=== PATIENT | female | born 1950 | race Caucasian/White ===

== ENCOUNTER 2023-07-17 21:06 | Inpatient (IN) | payer OTHER ==
[2023-07-17 21:36] LABS: Absolute Lymphocytes (CBC) 1.5 K/uL (0.7-4.9); Hematocrit 42.6 % (36.0-45.0); Lymphocytes % 16.9 % (15.3-44.8); MCV 91.8 fL (80-100); MPV 7.7 fL (7.6-11.3); Platelets 269 thou/uL (152-406); RBC Red Blood Cell Count 4.64 M/uL (3.86-4.86)
[2023-07-17] MEDS ORDERED: NA CHLORIDE 0.9% 250 ML ONE (21:39)
[2023-07-17] MEDS ORDERED: NA CHLORIDE 0.9% 100 ML ONE (21:39)
[2023-07-17] MEDS ORDERED: CEFEPIME 1 GM/VIAL ONE (21:39)
[2023-07-17] MEDS ORDERED: VANCOMYCIN 1 GM/VIAL ONE (21:39)
[2023-07-17] MEDS ORDERED: ACETAMINOPHEN 650MG/RECT SUPP PR ONE (21:39)
[2023-07-17] MEDS ORDERED: NA CHLORIDE 0.9% 2,000 ML ONE (21:40)
[2023-07-17 21:44] LABS: Urine Bacteria <20 /HPF (<20); Urine Bilirubin NEGATIVE (Negative); Urine Blood Trace (Negative); Urine Clarity Extremely Turbid (Clear); Urine Color Yellow (Yellow); Urine Crystals Unidentified Few /HPF (None Seen); Urine Glucose 2+ (Negative); Urine Mucus Slight /HPF (None Seen); Urine Protein 2+ (Negative); Urine RBC <5 /HPF (None Seen); Urine Urobilinogen Normal (Normal); Urine pH 5.5 (5.0-7.0)
[2023-07-17 21:54] LABS: Albumin 3.7 g/dL (3.4-5.0); Bilirubin Total 0.5 mg/dL (0.2-1.0); Potassium 3.3 mEq/L (3.5-5.1); Protein, Total 7.1 g/dL (6.4-8.2)
[2023-07-17] MEDS ORDERED: propofoL 1,000 MG/100 ML VIAL IV ONE (22:00)
[2023-07-17 22:01] LABS: Blood Gas Oxyhemoglobin 95.2 % (94-97); Blood O2 Saturation 97.2 % (92-98.5)
[2023-07-17 22:02] LABS: Arterial Blood Carboxyhemoglob 0.5 % (0-1.5)
[2023-07-17 22:07] LABS: Protime INR 1.08
--- NOTE | 2023-07-17 22:19 | RAD REPORT ---
EXAM DESCRIPTION: RAD - Chest Single View - 07/17/2023 10:08 pm CLINICAL HISTORY: AMS COMPARISON: CHEST PA AND LAT 2 VIEW dated 11/18/2013 FINDINGS: Lines: Endotracheal tube with tip at the top of the aortic arch. NG tube below the diaphra gm. Lungs: Low lung volumes with ill-defined bilateral interstitial and airspace disease . Pleural: No significant pleural effusions or pneumothorax. Cardiac: The heart size is within normal limits. Mediastinum: Within normal limits. Bones: No acute fractures. Other: None IMPRESSION: Bilateral airspace opacities could reflect aspiration and/or edema. Endotracheal tube an d NG tube in satisfactory position.
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
[2023-07-17 23:12] LABS: Barbiturates NEGATIVE (NEGATIVE); Benzodiazepines POSITIVE (NEGATIVE); Cocaine NEGATIVE (NEGATIVE); METHAMPHETAM NEGATIVE (NEGATIVE); Methadone NEGATIVE (NEGATIVE); Opiates NEGATIVE (NEGATIVE); Phencyclidine NEGATIVE (NEGATIVE); THC Cannibis NEGATIVE (NEGATIVE)
[2023-07-17 23:45] LABS: Blood Gas Oxyhemoglobin 96.9 % (94-97)
[2023-07-17 23:46] LABS: Arterial Blood Carboxyhemoglob 0.5 % (0-1.5)
[2023-07-18 00:50] LABS: Troponin High Sensitivity 1939.5 pg/mL (<58.9)
[2023-07-18] MEDS ORDERED: FENTANYL CITR 100 MCG/2 ML ONE (01:19)
[2023-07-18] MEDS ORDERED: RSI MEDICATION KIT IV ONE (01:45)
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
[2023-07-18] MEDS ORDERED: HEPARIN/D5W 25,000 UNIT/500 ML BAG IV ONE (02:43)
[2023-07-18] MEDS ORDERED: HEPARIN 5000 UNIT/ML 1 ML VIAL ONE (02:43)
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
[2023-07-18] MEDS ORDERED: ASPIRIN 300 MG/SUPP ONE (02:59)
[2023-07-18] MEDS: D5 0.45 NS 1,000 ML IV SCH ×2 (03:48→17:39)
[2023-07-18] MEDS ORDERED: VANCOMYCIN 1 GM in NA CHLORIDE 0.9% 250 ML IVPB SCH (03:48)
[2023-07-18] MEDS ORDERED: NA CHLORIDE 0.9% 500 ML ONE (03:51)
[2023-07-18] MEDS ORDERED: D5 0.45 NS 1,000 ML IV ONE (04:28)
[2023-07-18] MEDS ORDERED: VANCOMYCIN 1 GM in NA CHLORIDE 0.9% 250 ML IVPB ONE (05:00)
[2023-07-18] MEDS ORDERED: NA CHLORIDE 0.9% 250 ML ONE (06:07)
[2023-07-18] MEDS ORDERED: VANCOMYCIN 1 GM/VIAL ONE (06:07)
[2023-07-18 06:20] LABS: Arterial Blood Carboxyhemoglob 0.8 % (0-1.5); Blood Gas Oxyhemoglobin 95.6 % (94-97); Blood O2 Saturation 97.8 % (92-98.5)
--- NOTE | 2023-07-18 07:38 | RAD REPORT ---
EXAM DESCRIPTION: - CP - 07/18/2023 5:48 am CLINICAL HISTORY: abnormal gait, poss cva, syncope COMPARISON: No comparisons TECHNIQUE: Real-time sonographic evaluation of both carotid systems was performed. Doppler interroga tion was performed with waveform tracing bilaterally. FINDINGS: Normal high resistance waveforms are noted in both external carotid arteries. The common c arotid arteries and internal carotid arteries show normal low resistance waveforms. Hard and soft plaque present at the the carotid bifurcations. Peak systolic and end diastolic velocit y values and the ICA/CCA ratios are in the non-hemodynamically significant range. Antegrade flow seen in both vertebral arteries. Elevated peak systolic velocity present in the left v ertebral artery. The peak systolic velocity is 229 cm/sec. IMPRESSION: Mixed hard and soft plaque at the carotid bifurcations but no hemodynamically significan t stenosis involving either carotid system. Elevated PSV in the left vertebral artery likely reflecting a moderate to severe proximal stenosis.
[2023-07-18] MEDS ORDERED: PNEUMOCOCCAL VACCINE 0.5 ML IMVAC ONE (08:00)
--- NOTE | 2023-07-18 08:06 | RAD REPORT ---
EXAM DESCRIPTION: MRI - Brain Wo Cont - 07/18/2023 7:55 am CLINICAL HISTORY: abnormal gait, syncope COMPARISON: Head C Spine Cap Wo Con dated 07/17/2023 TECHNIQUE: Sagittal T1-weighted images were obtained along with PD/heavily T2-weighted and T2-FLAIR images. Axial DWI and ADC mapping sequences were also obtained along with coronal heavily T2-weighted images were obtained. FINDINGS: Small focus of diffusion restriction in the lateral right occipital lobe that may be corti [place] versus subcortical. Background of moderate to advanced chronic small vessel ischemic changes. No other infarct identified. No mass effect or midline shift. No hydrocephalus. Ethmoid air cell and mild maxillary sinus thickening. IMPRESSION: 1. Small acute right occipital lobe infarct. It is difficult to discern if this is corti [place] or subcortical. 2. Moderate chronic small vessel ischemic changes.
[2023-07-18 08:12] LABS: Absolute Lymphocytes (CBC) 1.2 K/uL (0.7-4.9); Hematocrit 37.1 % (36.0-45.0); Lymphocytes % 11.2 % (15.3-44.8); MPV 7.6 fL (7.6-11.3); Platelets 214 thou/uL (152-406); RBC Red Blood Cell Count 4.12 M/uL (3.86-4.86)
[2023-07-18 08:30] LABS: Albumin 3.2 g/dL (3.4-5.0); Bilirubin Total 0.6 mg/dL (0.2-1.0); Potassium 3.3 mEq/L (3.5-5.1); Protein, Total 6.1 g/dL (6.4-8.2); Thyroid Stimulating Hormone 0.231 uIU/mL (0.358-3.740)
[2023-07-18] MEDS: ASPIRIN EC 81 MG TAB PO SCH (09:00)
[2023-07-18] MEDS ORDERED: CEFEPIME 1 GM in NA CHLORIDE 0.9% 100 ML IV SCH ×5 (09:00→21:00)
--- NOTE | 2023-07-18 09:16 | P.HP ---
Patient History Date of Service: 07/18/23 Reason for admission: Severe sepsis, pneumonia, NSTEMI Allergies No Known Allergies Allergy (Verified 07/18/23 08:38) Home Medications: NK [No Home Meds] 07/18/23 - Past Medical/Surgical History Has patient received pneumonia vaccine in the past: No -: none -: C-sections Psychosocial/ Personal History: Patient lives at home with family - Family History Family History: Reviewed- Non-Contributory - Social History Smoking Status: Never smoker Alcohol use: No CD- Drugs: No Caffeine use: Yes Place of Residence: Home Physical Examination - Vital Signs Temperature: 100.4 F Blood Pressure: 128/63 Pulse: 91 Respirations: 22 Pulse Ox (%): 97 - Studies Laboratory Data (last 24 hrs) 07/17/23 07/17/23 07/17/23 21:25 21:25 21:25 WBC 9.10 Hgb 13.8 Hct 42.6 Plt Count 269 PT 11.9 INR 1.08 APTT 29.1 Sodium 142 Potassium 3.3 L BUN 24 H Creatinine 1.37 H Glucose 288 H Total Bilirubin 0.5 AST 45 H ALT 39 Alkaline Phosphatase 89 Microbiology Data (last 24 hrs): 07/17/23 21:20 Nasopharnyx Influenza Type A Antigen Screen - Final 07/17/23 21:20 Nasopharnyx Influenza Type B Antigen Screen - Final Assessment and Plan - Advance Directives Does patient have a Living Will: No Does patient have a Durable POA for Healthcare: No
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
[2023-07-18] MEDS: METOPROLOL TAR 25 MG TAB PO SCH ×2 (13:00→17:39)
[2023-07-18] MEDS: ACETAMINOPHEN 500 MG TAB PO PRN (13:04)
--- NOTE | 2023-07-18 13:56 | EKG ---
Test Date: 2023-07-17 Test Time: 21:09:47 Surgical Oncologist: ISIAH MEASUREMENT RESULTS: Intervals: Rate: 126 AL: 176 QRSD: 106 QT: 332 QTc: 480 [place]: P: 60 AL: 176 QRS: -34 T: 57 INTERPRETIVE STATEMENTS: Sinus tachycardia Left axis deviation Abnormal ECG No previous ECG available for comparison Electronically Signed On 07-18-23 13:55:05 CDT by Toen Watkins
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
[2023-07-18] MEDS: ATORVASTATIN 40 MG TAB PO SCH (20:50)
[2023-07-18] MEDS: AMOX/K CLAV 875 MG TAB PO SCH (20:50)
[2023-07-18] MEDS: HYDRALAZINE HCL 20 MG/ML VIAL IV PRN (21:11)
[2023-07-18] MEDS ORDERED: HYDRALAZINE HCL 20 MG/ML VIAL ONE (21:18)
[2023-07-18] MEDS ORDERED: POTASSIUM CL SA 10 MEQ TAB PO ONE (22:00)
[2023-07-19] MEDS: HEPARIN/D5W 25,000 UNIT/500 ML BAG IV SCH (03:53)
[2023-07-19] MEDS: D5 0.45 NS 1,000 ML IV SCH ×2 (03:53→19:29)
[2023-07-19 04:58] LABS: Absolute Lymphocytes (CBC) 2.2 K/uL (0.7-4.9); Hematocrit 38.9 % (36.0-45.0); MCV 89.7 fL (80-100); MPV 7.9 fL (7.6-11.3); Platelets 200 thou/uL (152-406); RBC Red Blood Cell Count 4.33 M/uL (3.86-4.86)
[2023-07-19] MEDS: METOPROLOL TAR 25 MG TAB PO SCH ×2 (05:09→18:01)
[2023-07-19 05:17] LABS: Albumin 3.2 g/dL (3.4-5.0); Bilirubin Total 0.6 mg/dL (0.2-1.0); Potassium 3.3 mEq/L (3.5-5.1); Protein, Total 6.3 g/dL (6.4-8.2)
[2023-07-19] MEDS: HYDRALAZINE HCL 20 MG/ML VIAL IV PRN ×2 (06:37→12:16)
--- NOTE | 2023-07-19 08:00 | P.PN ---
Subjective Date of Service: 07/19/23 Chief Complaint: Severe sepsis, pneumonia, NSTEMI Subjective: No new changes, Improving Physical Examination - Vital Signs Temperature: 98.1 F Blood Pressure: 206/76 Pulse: 71 Respirations: 19 Pulse Ox (%): 96 - Physical Exam General: Alert, Oriented x3 HEENT: Atraumatic, Normocephalic Neck: Supple Respiratory: Diminished Cardiovascular: Regular rate/rhythm, Normal S1 S2 Gastrointestinal: Soft and benign Musculoskeletal: No swelling Neurological: Normal speech, Normal strength at 5/5 x4 extr - Studies Microbiology Data (last 24 hrs): 07/17/23 21:10 Catheterized Urine [place] Count - Final No growth. 07/17/23 21:10 Catheterized Urine - Final No growth. Assessment And Plan - Plan Syncope, NSTEMI Continues to have severe elevated troponin and D-dimer. COVID treatment on board. Cardiology following for echocardiogram review. Severe sepsis secondary to aspiration pneumonia, COVID, questionable UTI We will continue broad-spectrum antibiotics with vancomycin, cefepime. Pulmonology recs appreciated. Blood cultures final result pending. we will follow results. Acute hypoxic respiratory failure secondary to aspiration pneumonia On supplemental oxygen. we will wean off as tolerated. History of vertigo, abnormal gait prior to arrival On routine monitoring. DVT PPX: Heparin drip for covid. Code status: full code. Discharge Plan: Home. Plan to discharge in: Greater than 2 days.
--- NOTE | 2023-07-19 08:08 | RAD REPORT ---
EXAM DESCRIPTION: CT - Chest For Pe Angio - 07/19/2023 6:02 am CLINICAL HISTORY: R/O PE, nstemi, elevated DD, syncope, hypoxia COMPARISON: Chest Single View dated 07/17/2023; Head C Spine Cap Wo Con dated 07/17/2023 TECHNIQUE: Thin axial CT images of the chest were obtained following administration of 100 mL Isovue 370 IV contrast. Multiplanar reconstructions, and maximum intensity projection reconstructions were generated and reviewed. Exam utilizes a protocol for optimal evaluation of pulmonary arterial tree. All CT scans are performed using dose optimization technique as appropriate and may include automated exposure control or mA/KV adjustment according to patient size. FINDINGS: Pulmonary arteries are normal. No emboli or other suspicious finding. No acute or signific ant aorta findings. No mass or infiltrate in the lung parenchyma. Partial improvement of the tendons airspace opacities t hroughout the lungs along with mild residual platelike atelectasis. No pleural thickening or pleural effusion. No pneumothorax. No abnormal mediastinal or hilar masses or lymphadenopathy seen. No chest wall mass or abnormal axill iary lymphadenopathy. IMPRESSION: No evidence of acute central pulmonary emboli. No acute findings in the chest. .
[2023-07-19] MEDS: AMOX/K CLAV 875 MG TAB PO SCH ×2 (08:17→20:08)
[2023-07-19] MEDS: ASPIRIN EC 81 MG TAB PO SCH (08:17)
[2023-07-19] MEDS ORDERED: VANCOMYCIN 1.5 GM in NA CHLORIDE 0.9% 500 ML IVPB SCH (09:00)
[2023-07-19] MEDS ORDERED: POTASSIUM CL SA 10 MEQ TAB PO ONE (09:00)
[2023-07-19] MEDS: ONDANSETRON 4 MG/2 ML VIAL IV PRN (12:21)
[2023-07-19] MEDS ORDERED: VANCOMYCIN 1.25 GM in NA CHLORIDE 0.9% 250 ML IVPB SCH (14:00)
[2023-07-19] MEDS: ACETAMINOPHEN 500 MG TAB PO PRN (15:48)
[2023-07-19] MEDS: ATORVASTATIN 40 MG TAB PO SCH (20:08)
[2023-07-20] MEDS: HYDRALAZINE HCL 20 MG/ML VIAL IV PRN (00:09)
[2023-07-20 04:41] LABS: Absolute Lymphocytes (CBC) 1.8 K/uL (0.7-4.9); Hematocrit 40.1 % (36.0-45.0); Lymphocytes % 28.3 % (15.3-44.8); MCV 89.6 fL (80-100); MPV 7.9 fL (7.6-11.3); Platelets 199 thou/uL (152-406); RBC Red Blood Cell Count 4.48 M/uL (3.86-4.86)
[2023-07-20 05:03] LABS: Bilirubin Total 0.7 mg/dL (0.2-1.0); Potassium 3.5 mEq/L (3.5-5.1); Protein, Total 6.2 g/dL (6.4-8.2)
[2023-07-20] MEDS: METOPROLOL TAR 25 MG TAB PO SCH ×2 (06:02→17:59)
--- NOTE | 2023-07-20 07:02 | P.PN ---
Date of Service: 07/20/23 Subjective: Doing okay Desats on room air, currently on 2L NC no acute events overnight denies chest pain afebrile ROS: 10 point ROS as noted above, otherwise negative Physical Exam: GEN: Alert, oriented, NAD HEENT: Normal conjunctiva, sclera anicteric CV: Regular rate and rhythm, no edema Pulm: Nonlabored respirations on 2L NC at, diminished at bases b/l ABD: Soft, nontender, nondistended Neuro: Normal speech, normal affect vitals reviewed Problem List: Syncope NSTEMI Severe sepsis secondary to aspiration pneumonia, COVID Acute hypoxic respiratory failure secondary to aspiration pneumonia Acute CVA, small right occipital lobe infarct MARYJO Elevated LFTs h/o of vertigo, abnormal gait prior to arrival Syncope NSTEMI troponins elevated, peak: [id number] monitor on tele asymptomatic Cardiology consulted continue IV heparin continue metoprolol, aspirin, statin tentative plan for heart cath once stable / infection resolved If patient develops chest pain or troponins remain significantly elevated, recommends transfer per cardio Severe sepsis secondary to aspiration pneumonia, COVID Acute hypoxic respiratory failure secondary to aspiration pneumonia Noted to be intubated in field by EMS, subsequently extubated in ED. CXR (07/17): Bilateral airspace opacities could reflect aspiration CT chest (07/17): Dependent airspace disease in the lungs likely reflecting aspiration pneumonitis. CTA chest (07/19): no PE. No acute findings Blood cx: NGTD Pulm consulted previously on cefepime / vanc continue PO augmentin (07/18-) On supplemental oxygen. wean as tolerated Acute CVA, small right occipital lobe infarct ?mod-sev proximal stenosis Brain MRI (07/18): Small acute right occipital lobe infarct. It is difficult to discern if this is cortical or subcortical. Moderate chronic small vessel ischemic changes Carotid u/s (07/18): Mixed hard and soft plaque at the carotid bifurcations but no hemodynamically significant stenosis involving either carotid system. Elevated PSV in the left vertebral artery likely reflecting a moderate to severe proximal stenosis Neurology consulted cont aspirin, folic acid, statin MARYJO Monitor renal function Continue IV fluids Elevated LFTs improving h/o of vertigo, abnormal gait prior to arrival On routine monitoring. VTE: Heparin drip Code: Full Dispo: Home 2+ days
[2023-07-20] MEDS: HEPARIN/D5W 25,000 UNIT/500 ML BAG IV SCH (08:02)
[2023-07-20] MEDS: D5 0.45 NS 1,000 ML IV SCH ×2 (08:03→20:07)
[2023-07-20] MEDS: AMOX/K CLAV 875 MG TAB PO SCH ×2 (08:04→20:06)
[2023-07-20] MEDS: ASPIRIN EC 81 MG TAB PO SCH (08:04)
[2023-07-20] MEDS: FOLIC ACID 1 MG TABLET PO SCH ×2 (08:04→20:07)
[2023-07-20] MEDS ORDERED: POTASSIUM CL SA 10 MEQ TAB PO ONE (09:00)
--- NOTE | 2023-07-20 09:56 | P.PN ---
Subjective Date of Service: 07/20/23 Chief Complaint: Non-STEMI Subjective: Improving (Patient is improving complaining of a slight cough no fever chills no chest pain) Review of Systems Unremarkable Physical Examination - Vital Signs Temperature: 97 F Blood Pressure: 159/63 Pulse: 70 Respirations: 16 Pulse Ox (%): 95 - Physical Exam General: Alert, Oriented x3 Respiratory: Clear to auscultation bilaterally Cardiovascular: No edema, Regular rate/rhythm, Normal S1 S2 - Studies Microbiology Data (last 24 hrs): 07/17/23 21:10 Catheterized Urine [place] Count - Final No growth. 07/17/23 21:10 Catheterized Urine - Final No growth. Assessment And Plan - Current Problems (Diagnosis) (1) COVID-19 virus RNA test result positive at limit of detection Current Visit: Yes Status: Acute Plan: Patient is doing well as far as COVID is concerned complaining of a cough will add inhaler (2) Non-STEMI (non-ST elevated myocardial infarction) Current Visit: Yes Status: Acute Plan: Patient's troponins are declining not sure what precipitated this event however by cardiology probably needs a cardiac cath to evaluate her coronary arteries blood pressure is mildly elevated x-ray no evidence of pneumonia evidence of sepsis no ischemic changes on EKG
[2023-07-20] MEDS: DULERA 200/5 (MOMETASONE/FORMOTEROL) INHALER IH SCH ×2 (12:58→20:07)
--- NOTE | 2023-07-20 15:33 | RAD REPORT ---
EXAM DESCRIPTION: RAD - Chest Single View - 07/20/2023 3:15 pm CLINICAL HISTORY: shortness of breath, desaturation COMPARISON: Chest Single View dated 07/17/2023; CHEST PA AND LAT 2 VIEW dated 11/18/2013 FINDINGS: Lines: None. Lungs: No evidence of edema or pneumonia. Pleural: No significant pleural effusions or pneumothorax. Cardiac: The heart size is within normal limits. Mediastinum: Within normal limits. Bones: No acute fractures. Other: None IMPRESSION: No acute cardiopulmonary disease.
[2023-07-20] MEDS: ATORVASTATIN 40 MG TAB PO SCH (20:07)
[2023-07-21 05:00] LABS: Absolute Lymphocytes (CBC) 1.9 K/uL (0.7-4.9); Hematocrit 39.2 % (36.0-45.0); Lymphocytes % 34.4 % (15.3-44.8); Platelets 202 thou/uL (152-406); RBC Red Blood Cell Count 4.36 M/uL (3.86-4.86)
[2023-07-21] MEDS: METOPROLOL TAR 25 MG TAB PO SCH ×2 (05:19→22:00)
[2023-07-21 05:26] VITALS: BMI 30.2
[2023-07-21 05:27] LABS: Albumin 2.9 g/dL (3.4-5.0); Bilirubin Total 0.7 mg/dL (0.2-1.0); Ferritin 338.4 ng/mL (8-388); Phosphorus 3.1 mg/dL (2.5-4.9); Potassium 3.7 mEq/L (3.5-5.1)
--- NOTE | 2023-07-21 07:13 | P.PN ---
Date of Service: 07/21/23 Subjective: Feeling better today no new / worsening problems Breathing more comfortably on room air denies chest pain afebrile ROS: 10 point ROS as noted above, otherwise negative Physical Exam: GEN: Alert, oriented, NAD HEENT: Normal conjunctiva, sclera anicteric CV: Regular rate and rhythm, no edema Pulm: Nonlabored respirations on room air, diminished at bases b/l ABD: Soft, nontender, nondistended Neuro: Normal speech, normal affect West in place vitals reviewed Problem List: Syncope NSTEMI Severe sepsis secondary to aspiration pneumonia, COVID Acute hypoxic respiratory failure secondary to aspiration pneumonia Acute CVA, small right occipital lobe infarct MARYJO, resolved Elevated LFTs h/o of vertigo, abnormal gait prior to arrival Hypertension Syncope NSTEMI troponins elevated, peak: [id number] monitor on tele asymptomatic Cardiology consulted continue IV heparin continue metoprolol, aspirin, statin echo ordered 07/18 tentative plan for heart cath once stable / infection resolved If patient develops chest pain or troponins remain significantly elevated, recommends transfer per cardio Severe sepsis secondary to aspiration pneumonia, COVID Acute hypoxic respiratory failure secondary to aspiration pneumonia Noted to be intubated in field by EMS, subsequently extubated in ED. CXR (07/17): Bilateral airspace opacities could reflect aspiration CT chest (07/17): Dependent airspace disease in the lungs likely reflecting aspiration pneumonitis. CTA chest (07/19): no PE. No acute findings Blood cx: NGTD Pulm consulted previously on cefepime / vanc continue PO augmentin (07/18-) On room air Acute CVA, small right occipital lobe infarct ?mod-sev proximal stenosis Brain MRI (07/18): Small acute right occipital lobe infarct. It is difficult to discern if this is cortical or subcortical. Moderate chronic small vessel ischemic changes Carotid u/s (07/18): Mixed hard and soft plaque at the carotid bifurcations but no hemodynamically significant stenosis involving either carotid system. Elevated PSV in the left vertebral artery likely reflecting a moderate to severe proximal stenosis Neurology consulted cont aspirin, folic acid, statin MARYJO, resolved Monitor renal function resolved with IV fluids Elevated LFTs improving h/o of vertigo, abnormal gait prior to arrival On routine monitoring Hypertension Started lisinpril 07/21 VTE: Heparin drip Code: Full Dispo: Home 2+ days
[2023-07-21] MEDS: AMOX/K CLAV 875 MG TAB PO SCH ×2 (09:00→22:00)
[2023-07-21] MEDS ORDERED: POTASSIUM 25 MEQ EFFERV TAB PO ONE (09:00)
[2023-07-21] MEDS: DULERA 200/5 (MOMETASONE/FORMOTEROL) INHALER IH SCH ×2 (09:32→22:01)
[2023-07-21] MEDS: lisinopriL 5 MG TAB PO SCH (09:33)
[2023-07-21] MEDS: FOLIC ACID 1 MG TABLET PO SCH ×2 (09:33→22:00)
[2023-07-21] MEDS: ASPIRIN EC 81 MG TAB PO SCH (09:33)
[2023-07-21] MEDS: HEPARIN/D5W 25,000 UNIT/500 ML BAG IV SCH (10:42)
[2023-07-21 16:17] LABS: SARS-CoV-2 Antigen Rapid Res Positive (Negative)
[2023-07-21] MEDS: ATORVASTATIN 40 MG TAB PO SCH (22:00)
--- NOTE | 2023-07-21 22:30 | PN ---
Date of Progress Note: 07/21/2023 Subjective: Seen by bedside. No chest pain. No shortness of breath. Mild cough is present. Review of Systems: No chest pain, shortness of breath, orthopnea, cough. No nausea, vomiting, diarrhea. All other syst ems reviewed are negative. Physical Examination: Vital Signs: Reviewed. Head and Neck: Pupils are equal, reactive to light. Intact eye movements. No JVD. No cervical lym phadenopathy. Neck: Supple. Thyroid is not enlarged. Lungs: Clear to auscultation bilaterally. No rhonchi, wheezing, or crackles. No accessory muscle u se. Heart: Regular rate and rhythm. No extra sounds. Abdomen: Soft, nontender. Bowel sounds positive. No organomegaly. No masses or hernia. No rigidi ty or rebound. Extremities: No edema, clubbing, cyanosis. Intact pulses. Skin: No rash. Neurologic: Alert, awake, oriented x3. No acute focal deficits appreciated. Lymph nodes: No cervical lymphadenopathy. Investigations: BUN 10, creatinine 0.7. Last troponin was 2691, and hemoglobin is 13.3. Assessment/recommendation: 1.Non-ST elevation myocardial infarction in the setting of COVID infection. This could still be dem and ischemia, however. Keep the patient n.p.o. Plan for coronary angiogram tomorrow as the troponin was significantly elevated. Echo showed normal ejection fraction. 2.COVID infection seems to be stable and getting better. Continue current management. 3.Hypertension. Blood pressure is controlled. 4.Dyslipidemia. Continue statin. SR/MODL Voice ID: [id number] Report ID: [id number]
[2023-07-22] MEDS: HYDRALAZINE HCL 20 MG/ML VIAL IV PRN (00:47)
[2023-07-22] MEDS: METOPROLOL TAR 25 MG TAB PO SCH ×2 (06:00→18:00)
[2023-07-22 06:17] LABS: Magnesium 2.1 mg/dL (1.6-2.4); Phosphorus 3.4 mg/dL (2.5-4.9); Potassium 3.6 mEq/L (3.5-5.1)
[2023-07-22] MEDS ORDERED: KCL 20 MEQ/100 mL IVPB 20 MEQ/100 ML BAG IV SCH (08:00)
[2023-07-22] MEDS: FOLIC ACID 1 MG TABLET PO SCH ×2 (08:21→21:12)
[2023-07-22] MEDS: ASPIRIN EC 81 MG TAB PO SCH (08:21)
[2023-07-22] MEDS: DULERA 200/5 (MOMETASONE/FORMOTEROL) INHALER IH SCH ×2 (08:21→21:11)
[2023-07-22] MEDS: AMOX/K CLAV 875 MG TAB PO SCH ×2 (08:21→21:11)
[2023-07-22] MEDS: lisinopriL 5 MG TAB PO SCH (08:22)
--- NOTE | 2023-07-22 08:25 | ECHO ---
HEIGHT: 5 ft 9 in WEIGHT: 205 lb 0 oz DATE OF STUDY: 07/21/[address]: Faheem Mckeon NP 2-DIMENSIONAL: YES M.MODE: YES DOPPLER: YES COLOR FLOW: YES TDS: PORTABLE: YES DEFINITY: BUBBLE STUDY: DIAGNOSIS: NON ST ELEVATION MYOCARDIAL INFARCTION/ SYNCOPE CARDIAC HISTORY: CATHERIZATION: SURGERY: PROSTHETIC VALVE: PACEMAKER: MEASUREMENTS (cm) DIASTOLIC (NORMALS) SYSTOLIC (NORMALS) IVSd 1.0 (0.6-1.2) LA Diam 3.8 (1.9-4.0) LVEF 70% LVIDd 4.3 (3.5-5.7) LVIDs 2.6 (2.0-3.5) %FS 39% LVPWd 1.2 (0.6-1.2) Ao Diam 2.4 (2.0-3.7) 2 DIMENSIONAL ASSESSMENT: RIGHT ATRIUM: NORMAL LEFT ATRIUM: NORMAL RIGHT VENTRICLE: NORMAL LEFT VENTRICLE: NORMAL TRICUSPID VALVE: MILD TRICUSPID REGURGITATION MITRAL VALVE: MILD MITRAL REGURGITATION PULMONIC VALVE: NORMAL AORTIC VALVE: NORMAL PERICARDIAL EFFUSION: NONE AORTIC ROOT: NORMAL LEFT VENTRICULAR WALL MOTION: NORMAL DOPPLER/COLOR FLOW: SEE BELOW COMMENTS: 1. NORMAL LEFT VENTRICULAR EJECTION FRACTION 60-65% WITH NORMAL WALL MOTION 2. GRADE I DIASTOLIC DYSFUNCTION 3. MILD MITRAL REGURGITATION 4. MILD TRICUSPID REGURGITATION TECHNOLOGIST: ROMAINE CARVER
[2023-07-22] MEDS: HEPARIN/D5W 25,000 UNIT/500 ML BAG IV SCH (10:28)
--- NOTE | 2023-07-22 12:20 | P.PN ---
Subjective Date of Service: 07/22/23 Chief Complaint: Non-STEMI Patient has no new complaint today. She has been tolerating room air. Physical Examination - Vital Signs Temperature: 97.5 F Blood Pressure: 141/66 Pulse: 63 Respirations: 18 Pulse Ox (%): 96 Assessment And Plan - Plan Physical Exam: GEN: Alert, oriented, NAD CV: Regular rate and rhythm, no edema Pulm: Nonlabored respirations on room air, diminished at bases b/l ABD: Soft, nontender, nondistended Neuro: Normal speech, normal affect, no focal motor deficit. West in place vitals reviewed Problem List: Syncope NSTEMI Severe sepsis secondary to aspiration pneumonia, COVID Acute hypoxic respiratory failure secondary to aspiration pneumonia Acute CVA, small right occipital lobe infarct MARYJO, resolved Elevated LFTs h/o of vertigo, abnormal gait prior to arrival Hypertension Syncope NSTEMI troponins elevated, peak: [id number] monitor on tele asymptomatic Cardiology consulted Treated with IV heparin continue metoprolol, aspirin, statin echo: Shows normal EF Patient scheduled for cardiac catheter today Severe sepsis secondary to aspiration pneumonia, COVID Acute hypoxic respiratory failure secondary to aspiration pneumonia Noted to be intubated in field by EMS, subsequently extubated in ED. CXR (07/17): Bilateral airspace opacities could reflect aspiration CT chest (07/17): Dependent airspace disease in the lungs likely reflecting aspiration pneumonitis. CTA chest (07/19): no PE. No acute findings Patient tested positive for COVID-19. Infiltrates could be related to COVID- pneumonia. Blood cx: NGTD Pulm consulted previously on cefepime / vanc continue PO augmentin (07/18-) She is tolerating room air Acute CVA, small right occipital lobe infarct ?mod-sev proximal stenosis Brain MRI (07/18): Small acute right occipital lobe infarct. It is difficult to discern if this is cortical or subcortical. Moderate chronic small vessel ischemic changes Carotid u/s (07/18): Mixed hard and soft plaque at the carotid bifurcations but no hemodynamically significant stenosis involving either carotid system. Elevated PSV in the left vertebral artery likely reflecting a moderate to severe proximal stenosis Neurology consulted cont aspirin, folic acid, statin No neurological deficit. MARYJO, resolved resolved with IV fluids Elevated LFTs Suspect secondary to sepsis/viral syndrome improving h/o of vertigo, abnormal gait prior to arrival Patient is independent. Seen by PT and no more further needs per PT. Hypertension Continue lisinopril. VTE: Heparin drip Code: Full Dispo: Home upon discharge.
[2023-07-22] MEDS ORDERED: LIDOCAINE 1% 20 ML MDV ONE (13:29)
[2023-07-22] MEDS ORDERED: HEPA 1000U/500MLS 2,000 UNIT/1,000 ML BAG IV ONE (13:29)
[2023-07-22] MEDS ORDERED: FENTANYL CITR 100 MCG/2 ML ONE (13:29)
[2023-07-22] MEDS ORDERED: NITROGLYCERIN 100 MCG/ML SYR (for cath lab use only) IV ONE (13:30)
[2023-07-22] MEDS ORDERED: TICAGRELOR 90 MG TABLET PO ONE (13:30)
[2023-07-22] MEDS ORDERED: NITROGLYCERIN/D5W 25 MG/250 ML BTL IV ONE (13:30)
[2023-07-22] MEDS ORDERED: VERAPAMIL HCL 10 MG/4 ML VIAL IV ONE (13:30)
[2023-07-22] MEDS ORDERED: CLOPIDOGREL 75 MG TABLET ONE (13:30)
[2023-07-22] MEDS ORDERED: MIDAZOLAM HCL 2 MG/2 ML INJ ONE (13:30)
[2023-07-22] MEDS ORDERED: ATROPINE SULF 1 MG/10 ML SYR IV ONE (13:30)
[2023-07-22] MEDS ORDERED: ASPIRIN 325 MG TAB ONE (13:30)
[2023-07-22] MEDS ORDERED: HEPARIN 5000 UNIT/ML 1 ML VIAL ONE (13:31)
[2023-07-22] MEDS ORDERED: HEPARIN 10,000 UNIT/10 ML VIAL IV ONE (13:31)
--- NOTE | 2023-07-22 16:00 | OP ---
Date of Procedure: 07/22/2023 Surgeon: AMAN BAUTISTA Procedures Performed: 1.Selective coronary angiogram. 2.Left heart catheterization. Indication: Recent non-ST elevation myocardial infarction. Access: Right radial artery 6-[place] closed with TR band. Complications: None. Bleeding: Less than 20 mL. Anesthesia: Total sedation time was 30 minutes, used fentanyl and Versed. Description Of Procedure: After risks, benefits, alternatives were explained, the patient agreed to procedure and signed informed consent. The patient was [facility], prepped and draped in the usual sterile fashion and then I accessed the right radial artery u sing a pediatric micropuncture kit, placed 6-[place] Slender sheath and took 5-[place] 4.0 cathet er into the aortic root over a J-wire, engaged the left main, took standard views and then engaged th e RCA, took standard views, and then I pushed the catheter over the wire into the LV, measured the LV EDP, pullback did not record any gradient, and then removed the catheter and sheath, placed TR band w ith good hemostasis. Findings: 1.Left main; ostial 30% stenosis. Rest of the left main appears normal. 2.LAD; proximal 40% stenosis and then becomes normal with normal diagonal branches, all the way to d istal becomes very small vessel, diffusely diseased about 30% to 40%. 3.Left circumflex; small, nondominant and with luminal irregularities. 4.RCA; large and dominant, proximal 30% stenosis. In the mid segment, has 2 tandem lesions ranging between 40% to 50%. Distally, there was a 40% stenosis and then the PDA has diffuse 30% to 40% steno sis. 5.Normal LVEDP at 5 mmHg. Conclusion: 1.Moderate nonobstructive coronary artery disease. 2.Normal LVEDP. Recommendation: Medical management. SR/MODL Voice ID: [id number] Report ID: [id number]
--- NOTE | 2023-07-22 16:51 | PN ---
Date of Progress Note: 07/22/2023 Subjective: Seen by bedside. No chest pain. Has mild hacking cough with mild shortness of breath. Review of Systems: No chest pain. Positive shortness of breath and cough. No nausea, vomiting, diarrhea. No abdominal pain. No dysuria, polyuria, or urinary urgency. All other systems reviewed and they were negative. Physical Examination: Vital Signs: Reviewed. Head and Neck: Pupils are equal, reactive to light. Intact eye movements. No JVD. No cervical lym phadenopathy. Neck: Supple. Thyroid is not enlarged. Lungs: Clear to auscultation bilaterally. No rhonchi, wheezing, or crackles. No accessory muscle u se. Heart: Regular rate and rhythm. No extra sounds. Abdomen: Soft, nontender. Bowel sounds positive. No organomegaly. No masses or hernia. No rigidi ty or rebound. Extremities: No edema, clubbing, or cyanosis. Intact pulses. Skin: No rash. Neurologic: Alert, awake, oriented x3. No acute focal deficits appreciated. Investigations: Labs reviewed. Assessment And Recommendations: 1.Elevated troponin, status post coronary angiogram. She has moderate nonobstructive coronary arter y disease, is likely demand ischemia. Echo showed normal ejection fraction. Recommend medical manag ement for her moderate coronary artery disease. See below. 2.Moderate coronary artery disease including left main. Recommend medical management with aspirin, high-dose statin, beta-wilner, and good blood pressure control. I will follow the patient on an out patient basis once COVID is completely cleared and then we will plan for doing a treadmill exercise s tress test as an outpatient. 3.Hypertension. Blood pressure is controlled. Continue current management. 4.Dyslipidemia. Continue statin. SR/MODL Voice ID: [id number] Report ID: [id number]
[2023-07-22] MEDS: ATORVASTATIN 40 MG TAB PO SCH (21:11)
[2023-07-22] MEDS: ONDANSETRON 4 MG/2 ML VIAL IV PRN (21:11)
[2023-07-23 00:26] VITALS: O2SAT 96
[2023-07-23] MEDS: METOPROLOL TAR 25 MG TAB PO SCH (06:10)
[2023-07-23 07:11] LABS: Absolute Lymphocytes (CBC) 0.9 K/uL (0.7-4.9); Hematocrit 41.1 % (36.0-45.0); Lymphocytes % 16.6 % (15.3-44.8); MCV 90.7 fL (80-100); MPV 8.6 fL (7.6-11.3); Platelets 245 thou/uL (152-406); RBC Red Blood Cell Count 4.53 M/uL (3.86-4.86)
[2023-07-23 07:26] LABS: Magnesium 2.4 mg/dL (1.6-2.4); Phosphorus 4.4 mg/dL (2.5-4.9); Potassium 3.8 mEq/L (3.5-5.1)
[2023-07-23] MEDS: DULERA 200/5 (MOMETASONE/FORMOTEROL) INHALER IH SCH (08:26)
[2023-07-23] MEDS: AMOX/K CLAV 875 MG TAB PO SCH (08:26)
[2023-07-23] MEDS: ONDANSETRON 4 MG/2 ML VIAL IV PRN (08:26)
[2023-07-23] MEDS: ASPIRIN EC 81 MG TAB PO SCH (08:26)
[2023-07-23] MEDS: FOLIC ACID 1 MG TABLET PO SCH (08:27)
[2023-07-23] MEDS: lisinopriL 5 MG TAB PO SCH (08:27)
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
[2023-07-23 09:51] VITALS: BP 157/56; TEMP 97.6
== END 2023-07-23 09:55 | disposition home or self-care (01) | DRG 871 ==
LOC: ER 21:06 → ERHOLD 07-18 02:15 → 3RD-ICU 07-18 07:46
PROVIDERS: ADMIT Internal Medicine Nephrology; ATTEND Internal Medicine
PROC: 5A1935Z Respiratory Ventilation, Less than 24 Consecutive Hours (ICD-10-PCS; principal; 2023-07-17)
PROC: 0BH17EZ Insertion of Endotracheal Airway into Trachea, Via Natural or Artificial Opening (ICD-10-PCS; 2023-07-17)
PROC: 4A023N7 Measurement of Cardiac Sampling and Pressure, Left Heart, Percutaneous Approach (ICD-10-PCS; 2023-07-22)
PROC: B2111ZZ Fluoroscopy of Multiple Coronary Arteries using Low Osmolar Contrast (ICD-10-PCS; 2023-07-22)
DX: A41.89 Other specified sepsis (principal); I21.A1 Myocardial infarction type 2; U07.1 COVID-19; J69.0 Pneumonitis due to inhalation of food and vomit; J96.01 Acute respiratory failure with hypoxia; I63.9 Cerebral infarction, unspecified; N17.9 Acute kidney failure, unspecified; I10 Essential (primary) hypertension; E78.5 Hyperlipidemia, unspecified; I25.10 Atherosclerotic heart disease of native coronary artery without angina pectoris; R73.9 Hyperglycemia, unspecified; R65.20 Severe sepsis without septic shock
CPT/HCPCS: 36415; 36600; 70450; 70551; 71045; 71250; 71275; 72125; 76937; 80048; 80053; 80061; 80143; 80179; 80307; 81001; 82077; 82550; 82728; 82805; 83605; 83735; 84100; 84439; 84443; 84484; 85025; 85379; 85610; 85730; 87040; 87086; 87088; 87635; 87804; 87811; 92610; 93005; 93306; 93458; 93880; 94002; 97116; 97161; 97530; 99291; 99292; C1893; J0360; J0461; J0692; J1644; J2001; J2250; J2405; J2704; J3010; J3480; J3535; J7030; J7040; J7050; J7799; Q9966; Q9967

== ENCOUNTER 2023-11-18 07:08 | Day surgery (SDC) | payer OTHER ==
[2023-11-13 14:35] LABS: Absolute Lymphocytes (CBC) 1.9 K/uL (0.7-4.9); Lymphocytes % 26.2 % (15.3-44.8); MCV 92.4 fL (80-100); Platelets 268 thou/uL (152-406); RBC Red Blood Cell Count 4.66 M/uL (3.86-4.86)
[2023-11-13 14:40] LABS: Protime INR 1.03
[2023-11-13 15:01] LABS: Potassium 3.9 mEq/L (3.5-5.1)
[2023-11-18] MEDS ORDERED: HEPA 1000U/500MLS 2,000 UNIT/1,000 ML BAG IV ONE ×2 (07:11→10:37)
[2023-11-18] MEDS ORDERED: LIDOCAINE 1% 20 ML MDV ONE ×2 (07:11→10:37)
[2023-11-18] MEDS ORDERED: NA CHLORIDE 0.9% 500 ML ONE (07:15)
[2023-11-18] MEDS ORDERED: NITROGLYCERIN/D5W 50 MG/250 ML BTL IV ONE (07:16)
[2023-11-18] MEDS ORDERED: FENTANYL CITR 100 MCG/2 ML ONE (07:16)
[2023-11-18] MEDS ORDERED: MIDAZOLAM HCL 2 MG/2 ML INJ ONE (07:17)
[2023-11-18 07:26] VITALS: TEMP 97.5
[2023-11-18] MEDS ORDERED: ATROPINE SULF 1 MG/10 ML SYR IV ONE (10:37)
--- NOTE | 2023-11-18 11:52 | EKG ---
Test Date: 2023-11-13 Test Time: 14:38:43 Clinical Research Management Associate: REED MEASUREMENT RESULTS: Intervals: Rate: 55 WY: 180 QRSD: 84 QT: 458 QTc: 438 [place]: P: 43 WY: 180 QRS: 23 T: 66 INTERPRETIVE STATEMENTS: Sinus bradycardia Otherwise normal ECG Compared to ECG 07/17/2023 21:09:47 Sinus tachycardia no longer present Left-axis deviation no longer present Electronically Signed On 11-18-23 11:47:26 [employer] by Tone Watkins
--- NOTE | 2023-11-18 12:53 | OP ---
Date of Procedure: 11/18/2023 Surgeon: AMAN BAUTISTA Procedure Performed: Selective bilateral carotid artery angiogram. Indication: Carotid stenosis with recent stroke. Access: Right femoral artery 6-[place]ian closed with 6-[place] Angio-Seal. Complications: None. Bleeding: Less than 20 mL. Anesthesia: Total sedation time was 30 minutes, used fentanyl and Versed. Description Of Procedure: After risks, benefits, and alternatives were explained, the patient agreed to procedure and signed informed consent. The patient was brought into cardiac catheterization labo [facility], prepped and draped in the usual sterile fashion. Then, I accessed right femoral artery using micropuncture kit, ultrasound guidance, and fluoroscopy, placed a 6-[place] sheath and took a 4-[place] 3DRC catheter into the aortic root, engaged the right common carotid artery, took standard views and then the left common carotid and took standard views and then removed the catheter and the sheath and placed 6-[place] Angio-Seal for closure with good hemostasis. Findings: 1.Right common carotid is normal. Right internal carotid has proximal 60% stenosis. 2.Left common carotid is normal. Left internal carotid has proximal 50% stenosis. Conclusion: Moderate bilateral carotid artery stenosis. Plan: Medical management. SR/MODL Voice ID: [id number] Report ID: [id number]
[2023-11-18 14:33] VITALS: BP 170/66; O2SAT 98
== END 2023-11-18 13:20 | disposition home or self-care (01) ==
LOC: CCL 07:08
PROVIDERS: ATTEND Internal Medicine
DX: I65.23 Occlusion and stenosis of bilateral carotid arteries (principal); I25.10 Atherosclerotic heart disease of native coronary artery without angina pectoris; I10 Essential (primary) hypertension; E78.5 Hyperlipidemia, unspecified; R42 Dizziness and giddiness; Z86.73 Personal history of transient ischemic attack (TIA), and cerebral infarction without residual deficits; Z79.82 Long term (current) use of aspirin; Z79.899 Other long term (current) drug therapy
CPT/HCPCS: 93005; 85025; 80048; 36415; 83721; 85610; 85730; 36222; 76937; C1893; C1760; G0269; J2001 ×2; J2250; J3010; J7040; 99152; 99153; J0461